=== PATIENT | female | born 1960 | race Caucasian/White ===

== ENCOUNTER 2021-10-15 15:25 | Outpatient (CLI) | payer BC ==
[2021-10-15 16:17] LABS: #Basophils 0.1 10x3/uL (0.0-0.2); #Eosinphils 0.2 10x3/uL (0.0-0.5); #Monocytes 1.1 10x3/uL (0.0-1.1); #Neutrophils 7.5 10x3/uL (1.5-8.4); %Basophils 1.1 % (0.0-2.0); %Eosinophils 1.4 % (0.0-6.0); %Lymphocytes 21.5 % (18.0-47.0); %Monocytes 9.5 % (0.0-10.0); %Neutrophils 66.1 % (40.0-75.0); Hemoglobin 14.3 g/dL (12.0-15.5); Mean Corpuscular HGB CONC 33.5 g/dL (32.0-36.0); Mean Corpuscular Hemoglobin 31.3 pg (27.0-33.0); Mean Corpuscular Volume 93.4 fl (81.6-98.3); Platelet Count 197 10x3/uL (150-450); Red Blood Cell (RBC) Count 4.57 10x6/uL (3.90-5.03); White Blood Cell (WBC) Count 11.4 10x3/uL (3.5-10.5)
[2021-10-15 16:38] LABS: Anion Gap 14 mmol/L (10-20); BUN (Urea Nitrogen) 25 mg/dL (9.8-20.1); Calc. Creatinine Clearance 0 mL/min (70-130); Calcium 10.1 mg/dL (7.8-10.44); Carbon Dioxide 27 mmol/L (23-31); Chloride 105 mmol/L (98-107); Glucose 99 mg/dL (80-115); Sodium 142 mmol/L (136-145)
[2021-10-15 16:45] LABS: Prothrombin Time 10.7 sec (9.5-12.1)
== END 2021-10-15 15:26 | disposition home or self-care (01) ==
LOC: LABBT 15:25
PROVIDERS: ATTEND Orthopaedic Surgery
DX: Z01.818 Encounter for other preprocedural examination (principal); M17.12 Unilateral primary osteoarthritis, left knee; Z20.822 Contact with and (suspected) exposure to COVID-19
CPT/HCPCS: 80048; 85025; 85610; 87081; 93005; 93010; U0003; U0005

== ENCOUNTER 2021-10-20 06:17 | Observation (INO) | payer BC, OTHER ==
[2021-10-20] MEDS ORDERED: Tranexamic Acid 1,000 MG/10 ML VIAL ONE (07:09)
[2021-10-20] MEDS ORDERED: Sodium Chloride 0.9% 100 ML ONE ×2 (07:10→09:10)
[2021-10-20] MEDS ORDERED: Vancomycin HCl 1.5 GM in Sodium Chloride 0.9% 250 ML 300 ML IVPB SCH (07:30)
[2021-10-20] MEDS ORDERED: Fentanyl 100 MCG/2 ML VIAL ONE ×3 (08:11→13:03)
[2021-10-20] MEDS ORDERED: Midazolam HCl 2 mg/2 ml Vial ONE (08:11)
[2021-10-20] MEDS ORDERED: Fentanyl 100 MCG/2 ML VIAL SLOW IVP PRN ×2 (08:52→16:03)
[2021-10-20] MEDS ORDERED: Promethazine HCl 25 MG/ML VIAL IM PRN ×3 (08:53→16:00)
[2021-10-20] MEDS ORDERED: Acetaminophen 325 MG TAB PO PRN (08:53)
[2021-10-20] MEDS ORDERED: HYDROcodone/Acetaminophen 10/325 mg Tablet PO PRN ×3 (08:53→16:00)
[2021-10-20] MEDS ORDERED: Ondansetron PF 4 MG/2 ML Vial IVP PRN ×3 (08:53→16:00)
[2021-10-20] MEDS ORDERED: Zolpidem Tartrate 5 MG TAB PO PRN ×3 (08:53→16:00)
[2021-10-20] MEDS ORDERED: diphenhydrAMINE 25 MG CAP PO PRN (08:53)
[2021-10-20] MEDS ORDERED: Acyclovir 800 mg Tablet PO PRN (08:54)
[2021-10-20] MEDS ORDERED: Ropivacaine HCl/PF 250 ML in Premix Bag 1 BAG NERVE BLCK SCH ×2 (09:00→16:00)
[2021-10-20] MEDS ORDERED: ceFAZolin 2 GM/Dextrose 50 ML 2 GM in Premix Bag 1 BAG IVPB SCH (09:00)
[2021-10-20] MEDS ORDERED: traMADol HCl 50 MG TAB PO PRN ×4 (09:00→16:00)
[2021-10-20] MEDS ORDERED: Bupivacaine PF 0.5% 30 ML VIAL ONE ×2 (09:04→11:47)
[2021-10-20] MEDS ORDERED: CEFAZOLIN 2 GM VIAL ONE (09:10)
[2021-10-20] MEDS ORDERED: Bupivacaine HCl 0.5%/Epinephrine 1:200,000/PF 30 ml Vial ONE (09:15)
[2021-10-20] MEDS ORDERED: Ketorolac Tromethamine 30 MG/ML VIAL ONE (09:15)
[2021-10-20] MEDS ORDERED: Ondansetron PF 4 MG/2 ML Vial ONE (09:15)
[2021-10-20] MEDS ORDERED: PROPOFOL 200 MG/20 ML VIAL ONE (09:15)
[2021-10-20] MEDS ORDERED: Dexamethasone 20 MG/5 ML VIAL ONE (09:15)
[2021-10-20] MEDS ORDERED: fentaNYL Citrate/PF 100 MCG/2 ML SYRINGE ONE (09:35)
[2021-10-20] MEDS ORDERED: Ketorolac Tromethamine 30 MG/ML VIAL IM SCH (14:00)
[2021-10-20 15:30] VITALS: BMI 45.3
[2021-10-20] MEDS: HYDROcodone/Acetaminophen 10/325 mg Tablet PO PRN ×2 (15:48→20:48)
[2021-10-20] MEDS: rOPINIRole HCl 1 MG TAB PO SCH ×2 (15:49→21:52)
[2021-10-20] MEDS: Sodium Chloride 0.9% 1,000 ML IV SCH ×2 (15:49→18:35)
[2021-10-20] MEDS: Senokot S 8.6-50 MG TAB PO SCH ×2 (15:49→20:44)
[2021-10-20] MEDS: Ferrous Gluconate 324 MG TAB PO SCH ×2 (15:50→20:44)
[2021-10-20] MEDS: Multivitamin W/ Minerals 1 TAB PO SCH (15:50)
[2021-10-20] MEDS: Ketorolac Tromethamine 30 MG/ML VIAL IVP SCH ×3 (15:50→18:05)
[2021-10-20] MEDS: Aspirin 81 mg Enteric Coated Tablet PO SCH ×2 (15:51→20:44)
[2021-10-20] MEDS ORDERED: Sodium Chloride 0.9% 500 ML IV SCH (17:00)
[2021-10-20] MEDS: CEFAZOLIN 2 GM in Sodium Chloride 0.9% 100 ML IVPB SCH (18:04)
[2021-10-20] MEDS: Magnesium Oxide 250 MG TAB PO SCH (20:44)
[2021-10-20] MEDS: Amlodipine 5 MG TAB PO SCH (20:44)
[2021-10-20] MEDS: Zinc Sulfate 220 MG CAP PO SCH (20:44)
[2021-10-20] MEDS: Escitalopram Oxalate 10 mg Tablet PO SCH (20:47)
[2021-10-20] MEDS: Atorvastatin Calcium 10 MG TAB PO SCH (20:47)
[2021-10-20] MEDS: ALPRAZolam 0.5 MG TAB PO SCH (20:47)
[2021-10-20] MEDS: Cholecalciferol 1,000 UNITS (25 MCG) TAB PO SCH (20:48)
[2021-10-20] MEDS: Docusate 100 MG CAP PO SCH (20:51)
[2021-10-20] MEDS ORDERED: Non-Formulary Item 1 EACH (Zolpidem Tartrate [Zolpidem Tartrate] 10 MG Tablet) PO SCH (21:00)
[2021-10-20] MEDS ORDERED: Non-Formulary Item 1 EACH (Losartan Potassium [Cozaar] 100 MG Tablet) PO SCH (21:00)
[2021-10-20] MEDS ORDERED: Non-Formulary Item 1 EACH (Amlodipine Besylate [Amlodipine Besylate] 2.5 MG Tablet) PO SCH (21:00)
[2021-10-20] MEDS ORDERED: Non-Formulary Item 1 EACH (Cholecalciferol (Vitamin D3) [Vitamin D3] 2,000 UNIT Capsule) PO SCH (21:00)
[2021-10-20] MEDS ORDERED: Non-Formulary Item 1 EACH (Zinc [Zinc] 50 MG Tablet) PO SCH (21:00)
[2021-10-20] MEDS ORDERED: Non-Formulary Item 1 EACH (Lovastatin [Lovastatin] 40 MG Tablet) PO SCH (21:00)
[2021-10-20] MEDS ORDERED: ALPRAZolam 0.25 MG TAB PO SCH (21:00)
[2021-10-20] MEDS ORDERED: Non-Formulary Item 1 EACH (Magnesium [Magnesium] 250 MG Tablet) PO SCH (21:00)
[2021-10-20] MEDS ORDERED: Zolpidem Tartrate 5 MG TAB PO SCH (21:00)
[2021-10-21] MEDS: Ketorolac Tromethamine 30 MG/ML VIAL IVP SCH ×6 (00:55→18:16)
[2021-10-21] MEDS: CEFAZOLIN 2 GM in Sodium Chloride 0.9% 100 ML IVPB SCH (01:01)
[2021-10-21] MEDS: HYDROcodone/Acetaminophen 10/325 mg Tablet PO PRN ×6 (01:06→21:16)
[2021-10-21] MEDS: Sodium Chloride 0.9% 1,000 ML IV SCH ×2 (04:10→16:43)
[2021-10-21 07:51] LABS: Hemoglobin 13.5 g/dL (12.0-16.0); Mean Corpuscular HGB CONC 32.3 g/dL (32.0-36.0); Mean Corpuscular Hemoglobin 31.8 pg (27.0-31.0); Mean Corpuscular Volume 98.4 fL (78.0-98.0); Platelet Count 159 thou/uL (130-400); RBC Distribution Width 12.6 % (11.5-14.5); Red Blood Cell (RBC) Count 4.24 mill/uL (4.20-5.40); White Blood Cell (WBC) Count 12.5 thou/uL (4.8-10.8)
[2021-10-21] MEDS: rOPINIRole HCl 1 MG TAB PO SCH ×2 (08:36→21:15)
[2021-10-21] MEDS: Losartan 25 MG TAB PO SCH (08:36)
[2021-10-21] MEDS: Aspirin 81 mg Enteric Coated Tablet PO SCH ×2 (08:37→21:18)
[2021-10-21] MEDS: Ferrous Gluconate 324 MG TAB PO SCH ×2 (08:37→21:15)
[2021-10-21] MEDS: Multivitamin W/ Minerals 1 TAB PO SCH (08:37)
[2021-10-21] MEDS: Senokot S 8.6-50 MG TAB PO SCH ×2 (08:39→21:15)
[2021-10-21] MEDS: Docusate 100 MG CAP PO SCH (21:15)
[2021-10-21] MEDS: Amlodipine 5 MG TAB PO SCH (21:17)
[2021-10-21] MEDS: Zinc Sulfate 220 MG CAP PO SCH (21:17)
[2021-10-21] MEDS: Atorvastatin Calcium 10 MG TAB PO SCH (21:17)
[2021-10-21] MEDS: Cholecalciferol 1,000 UNITS (25 MCG) TAB PO SCH (21:17)
[2021-10-21] MEDS: Escitalopram Oxalate 10 mg Tablet PO SCH (21:17)
[2021-10-21] MEDS: ALPRAZolam 0.5 MG TAB PO SCH (21:17)
[2021-10-21] MEDS: Magnesium Oxide 250 MG TAB PO SCH (21:18)
[2021-10-22] MEDS: Ketorolac Tromethamine 30 MG/ML VIAL IVP SCH ×3 (00:20→11:16)
[2021-10-22] MEDS: HYDROcodone/Acetaminophen 10/325 mg Tablet PO PRN ×3 (01:31→09:17)
[2021-10-22] MEDS: Sodium Chloride 0.9% 1,000 ML IV SCH ×2 (01:33→11:16)
[2021-10-22 06:14] LABS: Hemoglobin 13.1 g/dL (12.0-16.0); Mean Corpuscular HGB CONC 32.7 g/dL (32.0-36.0); Mean Corpuscular Hemoglobin 32.3 pg (27.0-31.0); Mean Corpuscular Volume 98.7 fL (78.0-98.0); Mean Platelet Volume 8.3 fL (7.4-10.4); Platelet Count 157 thou/uL (130-400); RBC Distribution Width 12.7 % (11.5-14.5); Red Blood Cell (RBC) Count 4.05 mill/uL (4.20-5.40); White Blood Cell (WBC) Count 11.6 thou/uL (4.8-10.8)
[2021-10-22 08:25] VITALS: BP 163/77; TEMP 98
[2021-10-22] MEDS: Aspirin 81 mg Enteric Coated Tablet PO SCH (09:18)
[2021-10-22] MEDS: Senokot S 8.6-50 MG TAB PO SCH (09:18)
[2021-10-22] MEDS: Ferrous Gluconate 324 MG TAB PO SCH (09:18)
[2021-10-22] MEDS: Multivitamin W/ Minerals 1 TAB PO SCH (09:18)
[2021-10-22] MEDS: rOPINIRole HCl 1 MG TAB PO SCH (09:18)
[2021-10-22] MEDS: Losartan 25 MG TAB PO SCH (09:18)
[2021-10-22] MEDS ORDERED: Cephalexin 250 MG CAP PO SCH (21:00)
== END 2021-10-22 12:45 | disposition home or self-care (01) ==
LOC: SDC 06:17 → SURG B 15:17
PROVIDERS: ADMIT Orthopaedic Surgery; ATTEND Orthopaedic Surgery
PROC: 0SRD0J9 Replacement of Left Knee Joint with Synthetic Substitute, Cemented, Open Approach (ICD-10-PCS; principal; 2021-10-22)
PROC: 8E0YXBZ Computer Assisted Procedure of Lower Extremity (ICD-10-PCS; 2021-10-22)
PROC: 3E0T3BZ Introduction of Anesthetic Agent into Peripheral Nerves and Plexi, Percutaneous Approach (ICD-10-PCS; 2021-10-22)
DX: M17.12 Unilateral primary osteoarthritis, left knee (principal); I10 Essential (primary) hypertension; E78.5 Hyperlipidemia, unspecified; G47.30 Sleep apnea, unspecified; G25.81 Restless legs syndrome; E78.00 Pure hypercholesterolemia, unspecified; G89.29 Other chronic pain; M54.9 Dorsalgia, unspecified; E66.01 Morbid (severe) obesity due to excess calories; Z68.42 Body mass index [BMI] 45.0-49.9, adult; Z79.899 Other long term (current) drug therapy; Z88.5 Allergy status to narcotic agent
CPT/HCPCS: 36415; 85027; 96365; 96375; 96376; C1713; C1776; G0378; J0690; J1100; J1885; J2250; J2405; J2704; J2795; J3010; J3370; J3490; J7050; S0020

== ENCOUNTER 2022-11-16 21:19 | Inpatient (IN) | payer BC, OTHER ==
[2022-11-16 22:10] LABS: #Basophils 0.1 thou/uL (0.0-0.2); #Eosinphils 0.2 thou/uL (0.0-0.7); #Monocytes 1.1 thou/uL (0.11-0.59); #Neutrophils 10.2 thou/uL (1.40-6.50); %Basophils 0.8 % (0.0-1.0); %Eosinophils 1.1 % (0.0-10.0); %Monocytes 8.3 % (0.0-10.0); Hemoglobin 14.1 g/dL (12.0-16.0); Mean Corpuscular HGB CONC 33.8 g/dL (32.0-36.0); Mean Corpuscular Hemoglobin 30.8 pg (27.0-31.0); Mean Platelet Volume 10.4 fL (7.4-10.4); Platelet Count 151 10x3/uL (130-400); RBC Distribution Width 13.5 % (11.5-14.5); Red Blood Cell (RBC) Count 4.58 mill/uL (4.20-5.40); White Blood Cell (WBC) Count 13.3 10x3/uL (4.8-10.8)
[2022-11-16 22:35] LABS: ALT (SGPT) 90 U/L (8-55); AST (SGOT) 59 U/L (5-34); Albumin 3.7 g/dL (3.4-4.8); Alkaline Phosphatase 114 U/L (40-110); Anion Gap 17 mmol/L (10-20); BUN (Urea Nitrogen) 11 mg/dL (9.8-20.1); Bilirubin, Total 0.4 mg/dL (0.2-1.2); Calc. Creatinine Clearance 0 mL/min (70-130); Calcium 9.5 mg/dL (7.8-10.44); Carbon Dioxide 19 mmol/L (23-31); Chloride 106 mmol/L (98-107); Estimated GFR 98; Globulin 3.1 g/dL (2.4-3.5); Glucose 114 mg/dL (80-115); Potassium 3.4 mmol/L (3.5-5.1); Protein, Total 6.8 g/dL (5.8-8.1); Sodium 139 mmol/L (136-145)
[2022-11-16] MEDS ORDERED: Amlodipine 10 MG TAB PO SCH (22:45)
[2022-11-16 22:55] LABS: CKMB 1.6 ng/mL (0-6.6)
[2022-11-16] MEDS ORDERED: Potassium Chloride 20 MEQ TAB PO SCH (23:00)
[2022-11-16] MEDS ORDERED: Labetalol HCl 100 MG/20 ML VIAL ONE (23:10)
[2022-11-16] MEDS ORDERED: Furosemide 20 MG/2 ML VIAL ONE (23:10)
[2022-11-17 00:15] LABS: Magnesium 1.9 mg/dL (1.6-2.6)
[2022-11-17] MEDS ORDERED: rOPINIRole HCl 1 MG TAB PO SCH (01:00)
[2022-11-17 01:19] VITALS: BMI 45.6
[2022-11-17 01:39] LABS: Troponin I 0.171 ng/mL (< 0.028)
[2022-11-17] MEDS ORDERED: Ketorolac Tromethamine 30 MG/ML VIAL IVP SCH (03:15)
[2022-11-17 04:00] LABS: #Basophils 0.1 thou/uL (0.0-0.2); #Eosinphils 0.1 thou/uL (0.0-0.7); #Monocytes 1.2 thou/uL (0.11-0.59); #Neutrophils 9.4 thou/uL (1.40-6.50); %Basophils 0.8 % (0.0-1.0); %Eosinophils 0.9 % (0.0-10.0); %Lymphocytes 9.9 % (21.0-51.0); %Monocytes 9.7 % (0.0-10.0); Hemoglobin 13.7 g/dL (12.0-16.0); Mean Corpuscular HGB CONC 32.8 g/dL (32.0-36.0); Mean Corpuscular Hemoglobin 30.1 pg (27.0-31.0); Mean Corpuscular Volume 91.9 fl (78.0-98.0); Mean Platelet Volume 10.7 fL (7.4-10.4); Platelet Count 150 10x3/uL (130-400); RBC Distribution Width 13.6 % (11.5-14.5); Red Blood Cell (RBC) Count 4.55 mill/uL (4.20-5.40)
[2022-11-17 04:23] LABS: ALT (SGPT) 91 U/L (8-55); AST (SGOT) 56 U/L (5-34); Albumin 3.7 g/dL (3.4-4.8); Alkaline Phosphatase 109 U/L (40-110); Anion Gap 18 mmol/L (10-20); BUN (Urea Nitrogen) 10 mg/dL (9.8-20.1); Bilirubin, Total 0.4 mg/dL (0.2-1.2); Calc. Creatinine Clearance 161 mL/min (70-130); Calcium 9.5 mg/dL (7.8-10.44); Carbon Dioxide 22 mmol/L (23-31); Chloride 104 mmol/L (98-107); Estimated GFR 98; Globulin 2.9 g/dL (2.4-3.5); Glucose 111 mg/dL (80-115); Magnesium 1.8 mg/dL (1.6-2.6); Phosphorus 5.1 mg/dL (2.3-4.7); Potassium 3.5 mmol/L (3.5-5.1); Protein, Total 6.6 g/dL (5.8-8.1); Sodium 140 mmol/L (136-145)
[2022-11-17 04:27] LABS: Troponin I 0.148 ng/mL (< 0.028)
[2022-11-17] MEDS ORDERED: HYDROcodone/Acetaminophen 7.5/325 mg Tablet PO SCH (05:00)
[2022-11-17 05:38] LABS: Legionella Urinary Ag Negative (Negative); Strep pneumo Urine Ag NEGATIVE (NEGATIVE)
[2022-11-17] MEDS: Furosemide 20 MG/2 ML VIAL SLOW IVP SCH ×2 (06:12→15:01)
[2022-11-17] MEDS: Losartan 25 MG TAB PO SCH (09:44)
[2022-11-17] MEDS: Ondansetron PF 4 MG/2 ML Vial IVP PRN ×2 (09:45→21:04)
[2022-11-17] MEDS ORDERED: Morphine 2 MG/ML VIAL SLOW IVP PRN (14:07)
[2022-11-17] MEDS: Docusate 100 MG CAP PO SCH (15:01)
[2022-11-17] MEDS: rOPINIRole HCl 1 MG TAB PO SCH ×2 (15:06→20:10)
[2022-11-17] MEDS ORDERED: Lidocaine 1% (PF) 30 ML VIAL ONE (16:13)
[2022-11-17 18:24] LABS: RBC Count-Automated (BF) 398726 /cu.mm; WBC/Nucleated-Auto (BF) 2131 /cu.mm
[2022-11-17 18:26] LABS: BF Color Red; Body Fluid Source Pleural Fluid; Clarity Cloudy/Turbid (Clear); Tube # EDTA
[2022-11-17 18:43] LABS: Pleural Fluid, Amylase Less than 30 U/L (Not Available); Pleural Fluid, Glucose Less than 20 mg/dL; Pleural Fluid, LDH 1339 U/L (Not Available)
[2022-11-17 18:50] LABS: BF Segmented Neutrophils 30 %; Cell Count Non Hematic 35 %; Lymphocytes 35 %
[2022-11-17] MEDS: HYDROcodone/Acetaminophen 10/325 mg Tablet PO PRN (20:10)
[2022-11-17] MEDS: Atorvastatin Calcium 10 MG TAB PO SCH (20:10)
[2022-11-17] MEDS: Zolpidem Tartrate 5 MG TAB PO SCH (20:10)
[2022-11-17] MEDS: ALPRAZolam 0.5 MG TAB PO SCH (20:10)
[2022-11-17] MEDS: Escitalopram Oxalate 10 mg Tablet PO SCH (20:10)
[2022-11-17] MEDS: Ascorbic Acid 500 mg Chewable Tablet PO SCH (20:10)
[2022-11-17] MEDS: Amlodipine 10 MG TAB PO SCH (20:11)
[2022-11-17] MEDS: Magnesium Oxide 250 MG TAB PO SCH (20:52)
[2022-11-17] MEDS: LevoFLOXacin 750 mg/D5W 750 MG in Premix Bag 1 BAG IVPB SCH (20:52)
[2022-11-18 04:05] LABS: #Basophils 0.1 thou/uL (0.0-0.2); #Eosinphils 0.3 thou/uL (0.0-0.7); #Monocytes 1.4 thou/uL (0.11-0.59); #Neutrophils 9.3 thou/uL (1.40-6.50); %Basophils 0.8 % (0.0-1.0); %Lymphocytes 13.2 % (21.0-51.0); %Monocytes 10.7 % (0.0-10.0); %Neutrophils 72.3 % (42.0-75.0); Hemoglobin 14.3 g/dL (12.0-16.0); Mean Corpuscular HGB CONC 32.9 g/dL (32.0-36.0); Mean Corpuscular Hemoglobin 30.8 pg (27.0-31.0); Mean Corpuscular Volume 93.5 fl (78.0-98.0); Mean Platelet Volume 10.8 fL (7.4-10.4); Platelet Count 149 10x3/uL (130-400); RBC Distribution Width 13.6 % (11.5-14.5); Red Blood Cell (RBC) Count 4.65 mill/uL (4.20-5.40); White Blood Cell (WBC) Count 12.9 10x3/uL (4.8-10.8)
[2022-11-18 04:29] LABS: ALT (SGPT) 100 U/L (8-55); AST (SGOT) 63 U/L (5-34); Albumin 3.7 g/dL (3.4-4.8); Alkaline Phosphatase 118 U/L (40-110); Anion Gap 16 mmol/L (10-20); BUN (Urea Nitrogen) 13 mg/dL (9.8-20.1); Bilirubin, Total 0.4 mg/dL (0.2-1.2); Calc. Creatinine Clearance 148 mL/min (70-130); Calcium 9.4 mg/dL (7.8-10.44); Carbon Dioxide 27 mmol/L (23-31); Chloride 102 mmol/L (98-107); Estimated GFR 92; Glucose 102 mg/dL (80-115); Magnesium 1.9 mg/dL (1.6-2.6); Potassium 3.3 mmol/L (3.5-5.1); Protein, Total 6.7 g/dL (5.8-8.1); Sodium 142 mmol/L (136-145)
[2022-11-18] MEDS: Furosemide 20 MG/2 ML VIAL SLOW IVP SCH ×2 (05:33→13:15)
[2022-11-18] MEDS: HYDROcodone/Acetaminophen 10/325 mg Tablet PO PRN ×3 (05:35→19:44)
[2022-11-18] MEDS: Aspirin 81 mg Enteric Coated Tablet PO SCH (08:14)
[2022-11-18] MEDS: Losartan 25 MG TAB PO SCH (08:14)
[2022-11-18] MEDS: rOPINIRole HCl 1 MG TAB PO SCH ×2 (08:14→20:10)
[2022-11-18] MEDS: Docusate 100 MG CAP PO SCH (08:14)
[2022-11-18] MEDS: metroNIDAZOLE 500 MG in Premix Bag 1 BAG IVPB SCH ×2 (15:25→21:32)
[2022-11-18] MEDS ORDERED: Polyethylene Glycol 3350 17 GM Packet PO SCH (19:00)
[2022-11-18] MEDS: Ondansetron PF 4 MG/2 ML Vial IVP PRN (19:46)
[2022-11-18] MEDS: LevoFLOXacin 750 mg/D5W 750 MG in Premix Bag 1 BAG IVPB SCH (20:01)
[2022-11-18] MEDS: Escitalopram Oxalate 10 mg Tablet PO SCH (20:12)
[2022-11-18] MEDS: ALPRAZolam 0.5 MG TAB PO SCH (20:12)
[2022-11-18] MEDS: Senokot S 8.6-50 MG TAB PO SCH (20:12)
[2022-11-18] MEDS: Amlodipine 10 MG TAB PO SCH (20:12)
[2022-11-18] MEDS: Ascorbic Acid 500 mg Chewable Tablet PO SCH (20:13)
[2022-11-18] MEDS: Magnesium Oxide 250 MG TAB PO SCH (20:13)
[2022-11-18] MEDS: Atorvastatin Calcium 10 MG TAB PO SCH (20:13)
[2022-11-18] MEDS: Zolpidem Tartrate 5 MG TAB PO SCH (21:30)
[2022-11-19 04:01] LABS: #Basophils 0.1 thou/uL (0.0-0.2); #Eosinphils 0.3 thou/uL (0.0-0.7); #Monocytes 1.4 thou/uL (0.11-0.59); #Neutrophils 8.6 thou/uL (1.40-6.50); %Basophils 0.8 % (0.0-1.0); %Eosinophils 2.2 % (0.0-10.0); %Lymphocytes 14.6 % (21.0-51.0); %Monocytes 11.4 % (0.0-10.0); %Neutrophils 69.7 % (42.0-75.0); Hemoglobin 14.3 g/dL (12.0-16.0); Mean Corpuscular HGB CONC 32.6 g/dL (32.0-36.0); Mean Corpuscular Hemoglobin 30.2 pg (27.0-31.0); Mean Corpuscular Volume 92.6 fl (78.0-98.0); Mean Platelet Volume 10.8 fL (7.4-10.4); Platelet Count 151 10x3/uL (130-400); RBC Distribution Width 13.5 % (11.5-14.5); Red Blood Cell (RBC) Count 4.73 mill/uL (4.20-5.40); White Blood Cell (WBC) Count 12.3 10x3/uL (4.8-10.8)
[2022-11-19 04:34] LABS: ALT (SGPT) 90 U/L (8-55); AST (SGOT) 54 U/L (5-34); Albumin 3.7 g/dL (3.4-4.8); Alkaline Phosphatase 123 U/L (40-110); Anion Gap 19 mmol/L (10-20); BUN (Urea Nitrogen) 15 mg/dL (9.8-20.1); Bilirubin, Total 0.5 mg/dL (0.2-1.2); Calc. Creatinine Clearance 144 mL/min (70-130); Calcium 9.6 mg/dL (7.8-10.44); Carbon Dioxide 25 mmol/L (23-31); Chloride 99 mmol/L (98-107); Estimated GFR 89; Glucose 105 mg/dL (80-115); Magnesium 1.8 mg/dL (1.6-2.6); Potassium 3.1 mmol/L (3.5-5.1); Protein, Total 6.7 g/dL (5.8-8.1); Sodium 140 mmol/L (136-145)
[2022-11-19] MEDS: Furosemide 20 MG/2 ML VIAL SLOW IVP SCH ×2 (05:56→14:35)
[2022-11-19] MEDS: metroNIDAZOLE 500 MG in Premix Bag 1 BAG IVPB SCH ×3 (05:56→21:58)
[2022-11-19] MEDS: Senokot S 8.6-50 MG TAB PO SCH ×2 (08:17→20:21)
[2022-11-19] MEDS: Losartan 25 MG TAB PO SCH (08:17)
[2022-11-19] MEDS: Aspirin 81 mg Enteric Coated Tablet PO SCH (08:18)
[2022-11-19] MEDS: rOPINIRole HCl 1 MG TAB PO SCH ×2 (08:18→20:21)
[2022-11-19] MEDS: HYDROcodone/Acetaminophen 10/325 mg Tablet PO PRN ×3 (08:19→20:01)
[2022-11-19] MEDS: Polyethylene Glycol 3350 17 GM Packet PO SCH (08:21)
[2022-11-19] MEDS: ALPRAZolam 0.5 MG TAB PO SCH (20:01)
[2022-11-19] MEDS: LevoFLOXacin 750 mg/D5W 750 MG in Premix Bag 1 BAG IVPB SCH (20:16)
[2022-11-19] MEDS: Atorvastatin Calcium 10 MG TAB PO SCH (20:19)
[2022-11-19] MEDS: Amlodipine 10 MG TAB PO SCH (20:20)
[2022-11-19] MEDS: Ascorbic Acid 500 mg Chewable Tablet PO SCH (20:20)
[2022-11-19] MEDS: Magnesium Oxide 250 MG TAB PO SCH (20:21)
[2022-11-19] MEDS: Escitalopram Oxalate 10 mg Tablet PO SCH (20:21)
[2022-11-19] MEDS: Zolpidem Tartrate 5 MG TAB PO SCH (21:50)
[2022-11-20] MEDS: HYDROcodone/Acetaminophen 10/325 mg Tablet PO PRN ×3 (06:06→20:37)
[2022-11-20] MEDS: Furosemide 20 MG/2 ML VIAL SLOW IVP SCH ×2 (06:08→15:07)
[2022-11-20] MEDS: metroNIDAZOLE 500 MG in Premix Bag 1 BAG IVPB SCH ×3 (06:08→22:42)
[2022-11-20] MEDS: Ondansetron PF 4 MG/2 ML Vial IVP PRN (09:00)
[2022-11-20] MEDS: Polyethylene Glycol 3350 17 GM Packet PO SCH (09:00)
[2022-11-20] MEDS: Losartan 25 MG TAB PO SCH (09:04)
[2022-11-20] MEDS: rOPINIRole HCl 1 MG TAB PO SCH ×2 (09:04→20:37)
[2022-11-20] MEDS: Senokot S 8.6-50 MG TAB PO SCH ×2 (09:04→20:46)
[2022-11-20] MEDS: Aspirin 81 mg Enteric Coated Tablet PO SCH (09:04)
[2022-11-20] MEDS ORDERED: Iopamidol-370 76% 500 ML MDV (1 ML CHARGE) ONE (11:16)
[2022-11-20] MEDS: LevoFLOXacin 750 mg/D5W 750 MG in Premix Bag 1 BAG IVPB SCH (20:35)
[2022-11-20] MEDS: Escitalopram Oxalate 10 mg Tablet PO SCH (20:36)
[2022-11-20] MEDS: Atorvastatin Calcium 10 MG TAB PO SCH (20:36)
[2022-11-20] MEDS: ALPRAZolam 0.5 MG TAB PO SCH (20:36)
[2022-11-20] MEDS: Amlodipine 10 MG TAB PO SCH (20:36)
[2022-11-20] MEDS: Magnesium Oxide 250 MG TAB PO SCH (20:37)
[2022-11-20] MEDS: Zolpidem Tartrate 5 MG TAB PO SCH (20:37)
[2022-11-20] MEDS: Ascorbic Acid 500 mg Chewable Tablet PO SCH (20:46)
[2022-11-21] MEDS: Furosemide 20 MG/2 ML VIAL SLOW IVP SCH (06:20)
[2022-11-21] MEDS: metroNIDAZOLE 500 MG in Premix Bag 1 BAG IVPB SCH (06:20)
[2022-11-21] MEDS: HYDROcodone/Acetaminophen 10/325 mg Tablet PO PRN ×3 (06:31→20:58)
[2022-11-21] MEDS: Losartan 25 MG TAB PO SCH (08:12)
[2022-11-21] MEDS: rOPINIRole HCl 1 MG TAB PO SCH ×2 (08:12→20:59)
[2022-11-21] MEDS: Aspirin 81 mg Enteric Coated Tablet PO SCH (08:12)
[2022-11-21] MEDS: Polyethylene Glycol 3350 17 GM Packet PO SCH (08:13)
[2022-11-21] MEDS: Senokot S 8.6-50 MG TAB PO SCH ×2 (08:13→21:00)
[2022-11-21] MEDS: Ondansetron PF 4 MG/2 ML Vial IVP PRN (10:47)
[2022-11-21] MEDS: Magnesium Oxide 250 MG TAB PO SCH (20:59)
[2022-11-21] MEDS: Zolpidem Tartrate 5 MG TAB PO SCH (20:59)
[2022-11-21] MEDS: Amlodipine 10 MG TAB PO SCH (20:59)
[2022-11-21] MEDS: ALPRAZolam 0.5 MG TAB PO SCH (20:59)
[2022-11-21] MEDS: Atorvastatin Calcium 10 MG TAB PO SCH (20:59)
[2022-11-21] MEDS: Ascorbic Acid 500 mg Chewable Tablet PO SCH (21:00)
[2022-11-21] MEDS: Escitalopram Oxalate 10 mg Tablet PO SCH (21:00)
[2022-11-22] MEDS: LevoFLOXacin 500 MG TAB PO SCH (06:32)
[2022-11-22] MEDS: HYDROcodone/Acetaminophen 10/325 mg Tablet PO PRN ×3 (06:38→22:25)
[2022-11-22] MEDS: Losartan 25 MG TAB PO SCH (09:19)
[2022-11-22] MEDS: rOPINIRole HCl 1 MG TAB PO SCH ×2 (09:19→22:25)
[2022-11-22] MEDS: Polyethylene Glycol 3350 17 GM Packet PO SCH (09:20)
[2022-11-22] MEDS: Aspirin 81 mg Enteric Coated Tablet PO SCH (09:20)
[2022-11-22] MEDS: Senokot S 8.6-50 MG TAB PO SCH ×2 (09:20→20:45)
[2022-11-22] MEDS: Ondansetron PF 4 MG/2 ML Vial IVP PRN (12:12)
[2022-11-22] MEDS: Amlodipine 10 MG TAB PO SCH (20:44)
[2022-11-22] MEDS: Magnesium Oxide 250 MG TAB PO SCH (20:44)
[2022-11-22] MEDS: Ascorbic Acid 500 mg Chewable Tablet PO SCH (20:45)
[2022-11-22] MEDS: Zolpidem Tartrate 5 MG TAB PO SCH (20:45)
[2022-11-22] MEDS: Escitalopram Oxalate 10 mg Tablet PO SCH (20:45)
[2022-11-22] MEDS: Atorvastatin Calcium 10 MG TAB PO SCH (20:45)
[2022-11-22] MEDS: ALPRAZolam 0.5 MG TAB PO SCH (20:45)
[2022-11-23] MEDS: LevoFLOXacin 500 MG TAB PO SCH (05:34)
[2022-11-23] MEDS: Ondansetron PF 4 MG/2 ML Vial IVP PRN (05:49)
[2022-11-23] MEDS: HYDROcodone/Acetaminophen 10/325 mg Tablet PO PRN ×3 (08:38→17:14)
[2022-11-23] MEDS: Aspirin 81 mg Enteric Coated Tablet PO SCH (08:39)
[2022-11-23] MEDS: Losartan 25 MG TAB PO SCH (08:39)
[2022-11-23] MEDS: Senokot S 8.6-50 MG TAB PO SCH ×2 (08:41→21:12)
[2022-11-23] MEDS: Polyethylene Glycol 3350 17 GM Packet PO SCH (08:41)
[2022-11-23] MEDS: rOPINIRole HCl 1 MG TAB PO SCH ×2 (12:51→21:11)
[2022-11-23] MEDS ORDERED: Electrolyte Replacement Protocol 1 EACH FS PRN (18:30)
[2022-11-23] MEDS: Ascorbic Acid 500 mg Chewable Tablet PO SCH (21:11)
[2022-11-23] MEDS: Zolpidem Tartrate 5 MG TAB PO SCH (21:12)
[2022-11-23] MEDS: ALPRAZolam 0.5 MG TAB PO SCH (21:13)
[2022-11-23] MEDS: Amlodipine 10 MG TAB PO SCH (21:13)
[2022-11-23] MEDS: Magnesium Oxide 250 MG TAB PO SCH (21:13)
[2022-11-23] MEDS: Atorvastatin Calcium 10 MG TAB PO SCH (21:13)
[2022-11-23] MEDS: Escitalopram Oxalate 10 mg Tablet PO SCH (21:13)
[2022-11-24] MEDS: LevoFLOXacin 500 MG TAB PO SCH (05:13)
[2022-11-24] MEDS: HYDROcodone/Acetaminophen 10/325 mg Tablet PO PRN ×4 (05:19→19:11)
[2022-11-24 06:27] LABS: Phosphorus 4.6 mg/dL (2.3-4.7)
[2022-11-24 06:29] LABS: ALT (SGPT) 59 U/L (8-55); AST (SGOT) 58 U/L (5-34); Albumin 3.3 g/dL (3.4-4.8); Alkaline Phosphatase 153 U/L (40-110); Anion Gap 16 mmol/L (10-20); BUN (Urea Nitrogen) 28 mg/dL (9.8-20.1); Bilirubin, Total 0.7 mg/dL (0.2-1.2); Calc. Creatinine Clearance 106 mL/min (70-130); Calcium 9.8 mg/dL (7.8-10.44); Carbon Dioxide 31 mmol/L (23-31); Chloride 93 mmol/L (98-107); Estimated GFR 64; Globulin 3.1 g/dL (2.4-3.5); Glucose 123 mg/dL (80-115); Magnesium 2.2 mg/dL (1.6-2.6); Potassium 3.2 mmol/L (3.5-5.1); Protein, Total 6.4 g/dL (5.8-8.1); Sodium 137 mmol/L (136-145)
[2022-11-24] MEDS ORDERED: Potassium Chloride 20 MEQ TAB PO SCH (08:00)
[2022-11-24] MEDS: Losartan 25 MG TAB PO SCH (08:08)
[2022-11-24] MEDS: Polyethylene Glycol 3350 17 GM Packet PO SCH (08:08)
[2022-11-24] MEDS: Aspirin 81 mg Enteric Coated Tablet PO SCH (08:09)
[2022-11-24] MEDS: Senokot S 8.6-50 MG TAB PO SCH ×2 (08:09→20:46)
[2022-11-24 09:15] LABS: Fungus Stain Final report (.)
[2022-11-24] MEDS: rOPINIRole HCl 1 MG TAB PO SCH ×2 (10:52→20:46)
[2022-11-24 12:53] LABS: Potassium 3.5 mmol/L (3.5-5.1)
[2022-11-24] MEDS ORDERED: Iopamidol-370 76% 500 ML MDV (1 ML CHARGE) ONE (15:14)
[2022-11-24] MEDS ORDERED: Furosemide 20 MG/2 ML VIAL SLOW IVP SCH (18:15)
[2022-11-24] MEDS: Magnesium Oxide 250 MG TAB PO SCH (20:45)
[2022-11-24] MEDS: Amlodipine 10 MG TAB PO SCH (20:45)
[2022-11-24] MEDS: Enoxaparin 120 MG/0.8 ML SYRINGE SC SCH (20:45)
[2022-11-24] MEDS: Escitalopram Oxalate 10 mg Tablet PO SCH (20:45)
[2022-11-24] MEDS: ALPRAZolam 0.5 MG TAB PO SCH (20:45)
[2022-11-24] MEDS: Zolpidem Tartrate 5 MG TAB PO SCH (20:45)
[2022-11-24] MEDS: Ascorbic Acid 500 mg Chewable Tablet PO SCH (20:46)
[2022-11-24] MEDS: Atorvastatin Calcium 10 MG TAB PO SCH (20:46)
[2022-11-24] MEDS ORDERED: Apixaban 5 MG TAB PO SCH (21:00)
[2022-11-25] MEDS: HYDROcodone/Acetaminophen 10/325 mg Tablet PO PRN ×4 (01:00→20:25)
[2022-11-25] MEDS: LevoFLOXacin 500 MG TAB PO SCH (05:05)
[2022-11-25 05:22] LABS: Actual Bicarbonate (HCO3v) 27.9 mEq/L (22-28); Base Excess 4.9 mEq/L (-2.0 to +3.0); Calcium, Ionized (venous) 1.11 mmol/L (1.16-1.32); Chloride (VBG) 96 mmol/L (98-106); Hematocrit-VBG 46 % (36.0-47.0); Hemoglobin (Hb) 15.7 g/dL (11.7-16.0); Potassium (VBG) 3.53 mmol/L (3.70-5.30); Sodium 133.2 mmol/L (133-146); pH (venous) 7.506 (7.32-7.43)
[2022-11-25] MEDS: Polyethylene Glycol 3350 17 GM Packet PO SCH (09:41)
[2022-11-25] MEDS: Losartan 25 MG TAB PO SCH (09:41)
[2022-11-25] MEDS: Senokot S 8.6-50 MG TAB PO SCH ×2 (09:42→20:27)
[2022-11-25] MEDS: Furosemide 20 MG/2 ML VIAL SLOW IVP SCH (09:42)
[2022-11-25] MEDS: Enoxaparin 120 MG/0.8 ML SYRINGE SC SCH (09:42)
[2022-11-25] MEDS: Aspirin 81 mg Enteric Coated Tablet PO SCH (09:42)
[2022-11-25] MEDS: rOPINIRole HCl 1 MG TAB PO SCH ×2 (11:00→20:39)
[2022-11-25] MEDS: Amlodipine 10 MG TAB PO SCH (20:25)
[2022-11-25] MEDS: Apixaban 5 MG TAB PO SCH (20:27)
[2022-11-25] MEDS: Acetaminophen 325 MG TAB PO PRN (20:27)
[2022-11-25] MEDS: Ascorbic Acid 500 mg Chewable Tablet PO SCH (20:28)
[2022-11-25] MEDS: Magnesium Oxide 250 MG TAB PO SCH (20:28)
[2022-11-25] MEDS: Escitalopram Oxalate 10 mg Tablet PO SCH (20:29)
[2022-11-25] MEDS: Atorvastatin Calcium 10 MG TAB PO SCH (20:29)
[2022-11-25] MEDS: ALPRAZolam 0.5 MG TAB PO SCH (20:29)
[2022-11-25 20:31] LABS: Chloride 93 mmol/L (98-107); Potassium 3.5 mmol/L (3.5-5.1); Sodium 133 mmol/L (136-145)
[2022-11-25 20:32] LABS: Glucose 104 mg/dL (80-115)
[2022-11-25 20:34] LABS: Anion Gap 18 mmol/L (10-20); Carbon Dioxide 26 mmol/L (23-31)
[2022-11-25 20:36] LABS: Calc. Creatinine Clearance 110 mL/min (70-130); Estimated GFR 67
[2022-11-25 20:37] LABS: BUN (Urea Nitrogen) 30 mg/dL (9.8-20.1)
[2022-11-25] MEDS: Zolpidem Tartrate 5 MG TAB PO SCH (22:10)
[2022-11-25 23:34] LABS: Actual Bicarbonate (HCO3a) 29.5 mEq/L (22-28); Base Excess (BEa) 5.2 mEq/L (-2.0 to +3.0); CO2 Tension 42.1 mmHg (35.0-45.0); Calcium, Ionized (arterial) 1.21 mmol/L (1.12-1.30); Carboxyhemoglobin (COHb) 0.9 gm% (0.0-3.0); Hematocrit-ABG 43 % (36.0-47.0); Hemoglobin (Hb) 14.6 g/dL (12.0-16.0); Potassium - ABG Lab 3.23 mmol/L (3.70-5.30); pH, Arterial 7.464 (7.35-7.45)
[2022-11-25 23:36] LABS: ALV-art Gradient 179.875 mmHg (0-20); Puncture Site RRA
[2022-11-25] MEDS ORDERED: Furosemide 40 MG/4 ML VIAL SLOW IVP SCH (23:45)
[2022-11-26] MEDS: HYDROcodone/Acetaminophen 10/325 mg Tablet PO PRN ×3 (05:08→20:22)
[2022-11-26] MEDS: LevoFLOXacin 500 MG TAB PO SCH (05:09)
[2022-11-26] MEDS ORDERED: Potassium Chloride 20 MEQ TAB PO SCH (08:00)
[2022-11-26] MEDS: Aspirin 81 mg Enteric Coated Tablet PO SCH (08:42)
[2022-11-26] MEDS: Losartan 25 MG TAB PO SCH (08:42)
[2022-11-26] MEDS: Apixaban 5 MG TAB PO SCH ×2 (08:43→20:22)
[2022-11-26] MEDS: Furosemide 20 MG/2 ML VIAL SLOW IVP SCH (08:43)
[2022-11-26] MEDS: Senokot S 8.6-50 MG TAB PO SCH ×2 (08:43→20:22)
[2022-11-26] MEDS: rOPINIRole HCl 0.5 MG TAB PO SCH (08:43)
[2022-11-26] MEDS: Polyethylene Glycol 3350 17 GM Packet PO SCH (09:09)
[2022-11-26] MEDS: rOPINIRole HCl 1 MG TAB PO SCH (20:22)
[2022-11-26] MEDS: Atorvastatin Calcium 10 MG TAB PO SCH (20:23)
[2022-11-26] MEDS: Escitalopram Oxalate 10 mg Tablet PO SCH (20:23)
[2022-11-26] MEDS: Amlodipine 10 MG TAB PO SCH (20:23)
[2022-11-26] MEDS: ALPRAZolam 0.5 MG TAB PO SCH (20:23)
[2022-11-26] MEDS: Zolpidem Tartrate 5 MG TAB PO SCH (20:25)
[2022-11-26] MEDS: Ascorbic Acid 500 mg Chewable Tablet PO SCH (20:25)
[2022-11-26] MEDS: Magnesium Oxide 250 MG TAB PO SCH (20:38)
[2022-11-27] MEDS: HYDROcodone/Acetaminophen 10/325 mg Tablet PO PRN ×4 (04:05→20:33)
[2022-11-27] MEDS: LevoFLOXacin 500 MG TAB PO SCH (06:32)
[2022-11-27] MEDS: rOPINIRole HCl 0.5 MG TAB PO SCH (09:23)
[2022-11-27] MEDS: Senokot S 8.6-50 MG TAB PO SCH ×2 (09:23→20:33)
[2022-11-27] MEDS: Apixaban 5 MG TAB PO SCH ×2 (09:24→20:34)
[2022-11-27] MEDS: Aspirin 81 mg Enteric Coated Tablet PO SCH (09:24)
[2022-11-27] MEDS: Polyethylene Glycol 3350 17 GM Packet PO SCH (09:24)
[2022-11-27] MEDS: Losartan 25 MG TAB PO SCH (12:35)
[2022-11-27] MEDS: Amlodipine 10 MG TAB PO SCH (20:33)
[2022-11-27] MEDS: Magnesium Oxide 250 MG TAB PO SCH (20:33)
[2022-11-27] MEDS: rOPINIRole HCl 1 MG TAB PO SCH (20:34)
[2022-11-27] MEDS: Atorvastatin Calcium 10 MG TAB PO SCH (20:34)
[2022-11-27] MEDS: Zolpidem Tartrate 5 MG TAB PO SCH (20:34)
[2022-11-27] MEDS: Ascorbic Acid 500 mg Chewable Tablet PO SCH (20:34)
[2022-11-27] MEDS: ALPRAZolam 0.5 MG TAB PO SCH (20:34)
[2022-11-27] MEDS: Escitalopram Oxalate 10 mg Tablet PO SCH (20:34)
[2022-11-28] MEDS: LevoFLOXacin 500 MG TAB PO SCH (06:06)
[2022-11-28] MEDS: HYDROcodone/Acetaminophen 10/325 mg Tablet PO PRN ×3 (06:07→20:56)
[2022-11-28] MEDS: rOPINIRole HCl 0.5 MG TAB PO SCH (08:55)
[2022-11-28] MEDS: Senokot S 8.6-50 MG TAB PO SCH ×2 (08:56→20:56)
[2022-11-28] MEDS: Apixaban 5 MG TAB PO SCH (08:56)
[2022-11-28] MEDS: Losartan 25 MG TAB PO SCH (08:56)
[2022-11-28] MEDS: Polyethylene Glycol 3350 17 GM Packet PO SCH (08:56)
[2022-11-28] MEDS: Aspirin 81 mg Enteric Coated Tablet PO SCH (08:56)
[2022-11-28] MEDS: Magnesium Oxide 250 MG TAB PO SCH (20:55)
[2022-11-28] MEDS: Amlodipine 10 MG TAB PO SCH (20:55)
[2022-11-28] MEDS: ALPRAZolam 0.5 MG TAB PO SCH (20:56)
[2022-11-28] MEDS: Zolpidem Tartrate 5 MG TAB PO SCH (20:56)
[2022-11-28] MEDS: Atorvastatin Calcium 10 MG TAB PO SCH (20:56)
[2022-11-28] MEDS: rOPINIRole HCl 1 MG TAB PO SCH (20:56)
[2022-11-28] MEDS: Escitalopram Oxalate 10 mg Tablet PO SCH (20:58)
[2022-11-28] MEDS: Ascorbic Acid 500 mg Chewable Tablet PO SCH (21:01)
[2022-11-29 04:00] LABS: CEA, Serum 767.11 ng/mL (< or = 5.0)
[2022-11-29 04:27] LABS: HBCM Index 0.07 S/CO (0-0.79); HBSAg Index 0.28 S/CO (0-0.99); Hep A IgM AB Non-Reactive S/CO (NonReactive); Hep A IgM S/CO 0.15 S/CO (0-0.79); Hep B Surf Ag Non-Reactive S/CO (NonReactive); Hep C IgG Ab Non-Reactive S/CO (NonReactive); Hep C Index 0.09 S/CO (0-0.79); Hepatitis B Core IgM Abs Non-Reactive S/CO (NonReactive)
[2022-11-29] MEDS: LevoFLOXacin 500 MG TAB PO SCH (05:36)
[2022-11-29] MEDS: HYDROcodone/Acetaminophen 10/325 mg Tablet PO PRN ×2 (05:37→09:08)
[2022-11-29] MEDS: rOPINIRole HCl 0.5 MG TAB PO SCH (09:08)
[2022-11-29] MEDS: Senokot S 8.6-50 MG TAB PO SCH ×2 (09:08→20:15)
[2022-11-29] MEDS: Aspirin 81 mg Enteric Coated Tablet PO SCH (09:09)
[2022-11-29] MEDS: Furosemide 20 MG/2 ML VIAL SLOW IVP SCH (09:09)
[2022-11-29] MEDS: Polyethylene Glycol 3350 17 GM Packet PO SCH (09:09)
[2022-11-29] MEDS: Losartan 25 MG TAB PO SCH (09:09)
[2022-11-29] MEDS: Acetaminophen 325 MG TAB PO PRN (14:08)
[2022-11-29 19:35] LABS: Actual Bicarbonate (HCO3v) 26.1 mEq/L (22-28); Base Excess 2.3 mEq/L (-2.0 to +3.0); Chloride (VBG) 94 mmol/L (98-106); Hematocrit-VBG 41 % (36.0-47.0); Hemoglobin (Hb) 14.1 g/dL (11.7-16.0); Potassium (VBG) 3.63 mmol/L (3.70-5.30); pH (venous) 7.453 (7.32-7.43)
[2022-11-29] MEDS: Atorvastatin Calcium 10 MG TAB PO SCH (20:15)
[2022-11-29] MEDS: ALPRAZolam 0.5 MG TAB PO SCH (20:15)
[2022-11-29] MEDS: Zolpidem Tartrate 5 MG TAB PO SCH (20:15)
[2022-11-29] MEDS: Ascorbic Acid 500 mg Chewable Tablet PO SCH ×2 (20:15→20:17)
[2022-11-29] MEDS: Apixaban 5 MG TAB PO SCH (20:15)
[2022-11-29] MEDS: Magnesium Oxide 250 MG TAB PO SCH (20:15)
[2022-11-29] MEDS: Escitalopram Oxalate 10 mg Tablet PO SCH (20:15)
[2022-11-29] MEDS: rOPINIRole HCl 1 MG TAB PO SCH (20:15)
[2022-11-29] MEDS: Amlodipine 10 MG TAB PO SCH (20:15)
[2022-11-30] MEDS: HYDROcodone/Acetaminophen 10/325 mg Tablet PO PRN ×3 (09:46→20:06)
[2022-11-30] MEDS: Apixaban 5 MG TAB PO SCH ×2 (09:46→20:07)
[2022-11-30] MEDS: Losartan 25 MG TAB PO SCH (09:47)
[2022-11-30] MEDS: Furosemide 20 MG/2 ML VIAL SLOW IVP SCH (09:48)
[2022-11-30] MEDS: Aspirin 81 mg Enteric Coated Tablet PO SCH (09:48)
[2022-11-30] MEDS: Polyethylene Glycol 3350 17 GM Packet PO SCH (09:48)
[2022-11-30] MEDS: Senokot S 8.6-50 MG TAB PO SCH ×2 (09:48→20:07)
[2022-11-30] MEDS: rOPINIRole HCl 0.5 MG TAB PO SCH (09:48)
[2022-11-30 13:57] LABS: O2 Tension (PaO2), arterial 52.7 mmHg (> 80.0)
[2022-11-30] MEDS: ALPRAZolam 0.5 MG TAB PO SCH (20:06)
[2022-11-30] MEDS: Magnesium Oxide 250 MG TAB PO SCH (20:07)
[2022-11-30] MEDS: Ascorbic Acid 500 mg Chewable Tablet PO SCH (20:07)
[2022-11-30] MEDS: Escitalopram Oxalate 10 mg Tablet PO SCH (20:07)
[2022-11-30] MEDS: Atorvastatin Calcium 10 MG TAB PO SCH (20:07)
[2022-11-30] MEDS: Amlodipine 10 MG TAB PO SCH (20:07)
[2022-11-30] MEDS: Zolpidem Tartrate 5 MG TAB PO SCH (20:07)
[2022-11-30] MEDS: rOPINIRole HCl 1 MG TAB PO SCH (20:07)
[2022-12-01] MEDS: Polyethylene Glycol 3350 17 GM Packet PO SCH (08:46)
[2022-12-01] MEDS: Apixaban 5 MG TAB PO SCH ×2 (08:46→20:40)
[2022-12-01] MEDS: Senokot S 8.6-50 MG TAB PO SCH ×2 (08:46→20:40)
[2022-12-01] MEDS: Aspirin 81 mg Enteric Coated Tablet PO SCH (08:46)
[2022-12-01] MEDS: Furosemide 20 MG/2 ML VIAL SLOW IVP SCH (08:47)
[2022-12-01] MEDS: Losartan 25 MG TAB PO SCH (08:47)
[2022-12-01] MEDS: rOPINIRole HCl 0.5 MG TAB PO SCH ×2 (09:48→11:02)
[2022-12-01] MEDS: Escitalopram Oxalate 10 mg Tablet PO SCH (20:40)
[2022-12-01] MEDS: rOPINIRole HCl 1 MG TAB PO SCH (20:40)
[2022-12-01] MEDS: Amlodipine 10 MG TAB PO SCH (20:40)
[2022-12-01] MEDS: Magnesium Oxide 250 MG TAB PO SCH (20:40)
[2022-12-01] MEDS: Zolpidem Tartrate 5 MG TAB PO SCH (20:41)
[2022-12-01] MEDS: Ascorbic Acid 500 mg Chewable Tablet PO SCH (20:41)
[2022-12-01] MEDS: Atorvastatin Calcium 10 MG TAB PO SCH (20:41)
[2022-12-01] MEDS: ALPRAZolam 0.5 MG TAB PO SCH (20:41)
[2022-12-01] MEDS: HYDROcodone/Acetaminophen 10/325 mg Tablet PO PRN (20:45)
[2022-12-02 04:12] LABS: #Basophils 0.2 thou/uL (0.0-0.2); #Eosinphils 0.2 thou/uL (0.0-0.7); #Monocytes 2.6 thou/uL (0.11-0.59); #Neutrophils 13.3 thou/uL (1.40-6.50); %Basophils 1.2 % (0.0-1.0); %Eosinophils 0.8 % (0.0-10.0); %Lymphocytes 12.3 % (21.0-51.0); %Monocytes 13.6 % (0.0-10.0); Hemoglobin 13.9 g/dL (12.0-16.0); Mean Corpuscular HGB CONC 32.3 g/dL (32.0-36.0); Mean Corpuscular Volume 92.9 fl (78.0-98.0); Mean Platelet Volume 11.4 fL (7.4-10.4); Platelet Count 263 10x3/uL (130-400); RBC Distribution Width 15.3 % (11.5-14.5); Red Blood Cell (RBC) Count 4.63 mill/uL (4.20-5.40); White Blood Cell (WBC) Count 19.3 10x3/uL (4.8-10.8)
[2022-12-02 04:32] LABS: Anion Gap 17 mmol/L (10-20); BUN (Urea Nitrogen) 37 mg/dL (9.8-20.1); Calc. Creatinine Clearance 100 mL/min (70-130); Calcium 11.7 mg/dL (7.8-10.44); Carbon Dioxide 27 mmol/L (23-31); Chloride 97 mmol/L (98-107); Estimated GFR 59; Glucose 91 mg/dL (80-115); Potassium 3.7 mmol/L (3.5-5.1); Sodium 137 mmol/L (136-145)
[2022-12-02] MEDS: Apixaban 5 MG TAB PO SCH ×2 (08:56→20:03)
[2022-12-02] MEDS: Polyethylene Glycol 3350 17 GM Packet PO SCH (08:56)
[2022-12-02] MEDS: Senokot S 8.6-50 MG TAB PO SCH ×2 (08:56→20:03)
[2022-12-02] MEDS: Aspirin 81 mg Enteric Coated Tablet PO SCH (08:56)
[2022-12-02] MEDS: Losartan 25 MG TAB PO SCH (09:32)
[2022-12-02] MEDS: HYDROcodone/Acetaminophen 10/325 mg Tablet PO PRN ×2 (11:27→20:18)
[2022-12-02] MEDS: rOPINIRole HCl 0.5 MG TAB PO SCH (11:29)
[2022-12-02] MEDS: Escitalopram Oxalate 10 mg Tablet PO SCH (20:03)
[2022-12-02] MEDS: ALPRAZolam 0.5 MG TAB PO SCH (20:03)
[2022-12-02] MEDS: Amlodipine 10 MG TAB PO SCH (20:03)
[2022-12-02] MEDS: rOPINIRole HCl 1 MG TAB PO SCH (20:03)
[2022-12-02] MEDS: Magnesium Oxide 250 MG TAB PO SCH (20:03)
[2022-12-02] MEDS: Ascorbic Acid 500 mg Chewable Tablet PO SCH (20:04)
[2022-12-02] MEDS: Zolpidem Tartrate 5 MG TAB PO SCH (20:04)
[2022-12-02] MEDS: Atorvastatin Calcium 10 MG TAB PO SCH (20:04)
[2022-12-03 05:27] LABS: #Basophils 0.2 thou/uL (0.0-0.2); #Eosinphils 0.2 thou/uL (0.0-0.7); #Monocytes 2.8 thou/uL (0.11-0.59); #Neutrophils 14.3 thou/uL (1.40-6.50); %Basophils 1.2 % (0.0-1.0); %Eosinophils 0.8 % (0.0-10.0); %Monocytes 13.7 % (0.0-10.0); %Neutrophils 70.1 % (42.0-75.0); Hemoglobin 13.7 g/dL (12.0-16.0); Mean Corpuscular HGB CONC 32.2 g/dL (32.0-36.0); Mean Corpuscular Hemoglobin 29.7 pg (27.0-31.0); Mean Corpuscular Volume 92.2 fl (78.0-98.0); Mean Platelet Volume 11.6 fL (7.4-10.4); Platelet Count 261 10x3/uL (130-400); RBC Distribution Width 15.2 % (11.5-14.5); Red Blood Cell (RBC) Count 4.62 mill/uL (4.20-5.40); White Blood Cell (WBC) Count 20.4 10x3/uL (4.8-10.8)
[2022-12-03 05:52] LABS: Anion Gap 14 mmol/L (10-20); BUN (Urea Nitrogen) 36 mg/dL (9.8-20.1); Calc. Creatinine Clearance 105 mL/min (70-130); Calcium 12.3 mg/dL (7.8-10.44); Carbon Dioxide 30 mmol/L (23-31); Chloride 98 mmol/L (98-107); Estimated GFR 63; Glucose 87 mg/dL (80-115); Potassium 3.8 mmol/L (3.5-5.1); Sodium 138 mmol/L (136-145)
[2022-12-03] MEDS: Polyethylene Glycol 3350 17 GM Packet PO SCH (09:41)
[2022-12-03] MEDS: Aspirin 81 mg Enteric Coated Tablet PO SCH (09:41)
[2022-12-03] MEDS: Senokot S 8.6-50 MG TAB PO SCH ×2 (09:41→20:34)
[2022-12-03] MEDS: rOPINIRole HCl 0.5 MG TAB PO SCH (10:10)
[2022-12-03] MEDS: Apixaban 5 MG TAB PO SCH ×2 (10:11→20:34)
[2022-12-03] MEDS: Losartan 25 MG TAB PO SCH (10:12)
[2022-12-03] MEDS: HYDROcodone/Acetaminophen 10/325 mg Tablet PO PRN ×2 (12:47→20:34)
[2022-12-03] MEDS ORDERED: Zoledronic Acid 4 MG in Sodium Chloride 0.9% 100 ML IVPB SCH (13:00)
[2022-12-03] MEDS: Escitalopram Oxalate 10 mg Tablet PO SCH (20:34)
[2022-12-03] MEDS: Zolpidem Tartrate 5 MG TAB PO SCH (20:34)
[2022-12-03] MEDS: Atorvastatin Calcium 10 MG TAB PO SCH (20:34)
[2022-12-03] MEDS: rOPINIRole HCl 1 MG TAB PO SCH (20:34)
[2022-12-03] MEDS: Amlodipine 10 MG TAB PO SCH (20:34)
[2022-12-03] MEDS: ALPRAZolam 0.5 MG TAB PO SCH (20:34)
[2022-12-03] MEDS: Ascorbic Acid 500 mg Chewable Tablet PO SCH (20:35)
[2022-12-03] MEDS: Magnesium Oxide 250 MG TAB PO SCH (20:35)
[2022-12-04 03:01] LABS: #Basophils 0.2 thou/uL (0.0-0.2); #Eosinphils 0.1 thou/uL (0.0-0.7); #Monocytes 2.5 thou/uL (0.11-0.59); #Neutrophils 15.1 thou/uL (1.40-6.50); %Basophils 1.1 % (0.0-1.0); %Eosinophils 0.6 % (0.0-10.0); %Lymphocytes 11.2 % (21.0-51.0); %Monocytes 12.1 % (0.0-10.0); %Neutrophils 72.3 % (42.0-75.0); Hemoglobin 14.2 g/dL (12.0-16.0); Mean Corpuscular HGB CONC 31.3 g/dL (32.0-36.0); Mean Corpuscular Hemoglobin 29.4 pg (27.0-31.0); Mean Platelet Volume 11.8 fL (7.4-10.4); Platelet Count 268 10x3/uL (130-400); RBC Distribution Width 15.5 % (11.5-14.5); Red Blood Cell (RBC) Count 4.83 mill/uL (4.20-5.40); White Blood Cell (WBC) Count 20.8 10x3/uL (4.8-10.8)
[2022-12-04 04:26] LABS: Anion Gap 17 mmol/L (10-20); BUN (Urea Nitrogen) 34 mg/dL (9.8-20.1); Calc. Creatinine Clearance 123 mL/min (70-130); Calcium 12.8 mg/dL (7.8-10.44); Carbon Dioxide 30 mmol/L (23-31); Chloride 98 mmol/L (98-107); Estimated GFR 75; Glucose 76 mg/dL (80-115); Potassium 3.6 mmol/L (3.5-5.1); Sodium 141 mmol/L (136-145)
[2022-12-04] MEDS: HYDROcodone/Acetaminophen 10/325 mg Tablet PO PRN ×2 (09:20→19:22)
[2022-12-04] MEDS: Apixaban 5 MG TAB PO SCH ×2 (09:21→20:54)
[2022-12-04] MEDS: Aspirin 81 mg Enteric Coated Tablet PO SCH (09:21)
[2022-12-04] MEDS: Senokot S 8.6-50 MG TAB PO SCH ×2 (09:21→20:55)
[2022-12-04] MEDS: Polyethylene Glycol 3350 17 GM Packet PO SCH (09:21)
[2022-12-04] MEDS: Losartan 25 MG TAB PO SCH (09:22)
[2022-12-04] MEDS: Nystatin 500,000 UNITS/5 ML UDCUP SSW SCH ×3 (12:11→20:51)
[2022-12-04] MEDS: rOPINIRole HCl 0.5 MG TAB PO SCH (12:11)
[2022-12-04] MEDS: Magnesium Oxide 250 MG TAB PO SCH (20:51)
[2022-12-04] MEDS: ALPRAZolam 0.5 MG TAB PO SCH (20:52)
[2022-12-04] MEDS: Atorvastatin Calcium 10 MG TAB PO SCH (20:52)
[2022-12-04] MEDS: Amlodipine 10 MG TAB PO SCH (20:54)
[2022-12-04] MEDS: Ascorbic Acid 500 mg Chewable Tablet PO SCH (20:54)
[2022-12-04] MEDS: Zolpidem Tartrate 5 MG TAB PO SCH (20:55)
[2022-12-04] MEDS: Escitalopram Oxalate 10 mg Tablet PO SCH (20:55)
[2022-12-04] MEDS: rOPINIRole HCl 1 MG TAB PO SCH (20:55)
[2022-12-05] MEDS: HYDROcodone/Acetaminophen 10/325 mg Tablet PO PRN ×3 (00:04→10:41)
[2022-12-05 03:07] LABS: #Basophils 0.2 thou/uL (0.0-0.2); #Eosinphils 0.1 thou/uL (0.0-0.7); #Monocytes 2.4 thou/uL (0.11-0.59); #Neutrophils 15.3 thou/uL (1.40-6.50); %Eosinophils 0.4 % (0.0-10.0); %Lymphocytes 8.9 % (21.0-51.0); %Monocytes 11.7 % (0.0-10.0); %Neutrophils 75.4 % (42.0-75.0); Mean Corpuscular HGB CONC 32.3 g/dL (32.0-36.0); Mean Corpuscular Hemoglobin 29.9 pg (27.0-31.0); Mean Corpuscular Volume 92.5 fl (78.0-98.0); Mean Platelet Volume 11.7 fL (7.4-10.4); Platelet Count 242 10x3/uL (130-400); RBC Distribution Width 15.7 % (11.5-14.5); Red Blood Cell (RBC) Count 4.69 mill/uL (4.20-5.40); White Blood Cell (WBC) Count 20.3 10x3/uL (4.8-10.8)
[2022-12-05 03:36] LABS: Anion Gap 13 mmol/L (10-20); BUN (Urea Nitrogen) 37 mg/dL (9.8-20.1); Calc. Creatinine Clearance 120 mL/min (70-130); Carbon Dioxide 32 mmol/L (23-31); Chloride 100 mmol/L (98-107); Estimated GFR 73; Glucose 105 mg/dL (80-115); Potassium 3.3 mmol/L (3.5-5.1); Sodium 142 mmol/L (136-145)
[2022-12-05] MEDS ORDERED: Potassium Chloride 20 MEQ TAB PO SCH (04:30)
[2022-12-05] MEDS: Polyethylene Glycol 3350 17 GM Packet PO SCH (10:40)
[2022-12-05] MEDS: Losartan 25 MG TAB PO SCH (10:40)
[2022-12-05] MEDS: rOPINIRole HCl 0.5 MG TAB PO SCH (10:40)
[2022-12-05] MEDS: Senokot S 8.6-50 MG TAB PO SCH ×2 (10:40→20:55)
[2022-12-05] MEDS: Apixaban 5 MG TAB PO SCH ×2 (10:40→10:54)
[2022-12-05] MEDS: Aspirin 81 mg Enteric Coated Tablet PO SCH (10:41)
[2022-12-05] MEDS: Nystatin 500,000 UNITS/5 ML UDCUP SSW SCH ×4 (10:43→20:55)
[2022-12-05] MEDS: Bumetanide 1 MG/4 ML VIAL IVP SCH (14:06)
[2022-12-05] MEDS: Phenazopyridine HCl 100 MG TAB PO SCH ×2 (14:07→21:08)
[2022-12-05] MEDS: Morphine 4 MG/ML VIAL SLOW IVP PRN ×2 (15:38→20:59)
[2022-12-05] MEDS: ALPRAZolam 0.5 MG TAB PO SCH (20:55)
[2022-12-05] MEDS: Zolpidem Tartrate 5 MG TAB PO SCH (20:55)
[2022-12-05] MEDS: Amlodipine 10 MG TAB PO SCH (20:56)
[2022-12-05] MEDS: Escitalopram Oxalate 10 mg Tablet PO SCH (20:56)
[2022-12-05] MEDS: rOPINIRole HCl 1 MG TAB PO SCH (20:56)
[2022-12-05] MEDS: Atorvastatin Calcium 10 MG TAB PO SCH (20:56)
[2022-12-05] MEDS: Ascorbic Acid 500 mg Chewable Tablet PO SCH (20:57)
[2022-12-05] MEDS: Magnesium Oxide 250 MG TAB PO SCH (20:57)
[2022-12-06] MEDS: Morphine 4 MG/ML VIAL SLOW IVP PRN ×2 (02:20→20:48)
[2022-12-06 05:16] LABS: #Basophils 0.2 thou/uL (0.0-0.2); #Eosinphils 0.2 thou/uL (0.0-0.7); #Monocytes 2.6 thou/uL (0.11-0.59); #Neutrophils 14.6 thou/uL (1.40-6.50); %Basophils 1.1 % (0.0-1.0); %Eosinophils 0.8 % (0.0-10.0); %Lymphocytes 10.4 % (21.0-51.0); %Monocytes 12.8 % (0.0-10.0); %Neutrophils 72.7 % (42.0-75.0); Hemoglobin 13.8 g/dL (12.0-16.0); Mean Corpuscular HGB CONC 31.4 g/dL (32.0-36.0); Mean Corpuscular Hemoglobin 29.9 pg (27.0-31.0); Mean Corpuscular Volume 95.4 fl (78.0-98.0); Mean Platelet Volume 11.4 fL (7.4-10.4); Platelet Count 233 10x3/uL (130-400); RBC Distribution Width 16.1 % (11.5-14.5); Red Blood Cell (RBC) Count 4.61 mill/uL (4.20-5.40); White Blood Cell (WBC) Count 20.1 10x3/uL (4.8-10.8)
[2022-12-06] MEDS: Bumetanide 1 MG/4 ML VIAL IVP SCH ×2 (05:36→15:31)
[2022-12-06 05:38] LABS: Anion Gap 14 mmol/L (10-20); BUN (Urea Nitrogen) 48 mg/dL (9.8-20.1); Calc. Creatinine Clearance 91 mL/min (70-130); Calcium 9.7 mg/dL (7.8-10.44); Carbon Dioxide 33 mmol/L (23-31); Chloride 102 mmol/L (98-107); Estimated GFR 54; Glucose 90 mg/dL (80-115); Potassium 3.9 mmol/L (3.5-5.1); Sodium 145 mmol/L (136-145)
[2022-12-06] MEDS: Nystatin 500,000 UNITS/5 ML UDCUP SSW SCH ×4 (08:40→20:49)
[2022-12-06] MEDS: Senokot S 8.6-50 MG TAB PO SCH ×2 (08:40→20:51)
[2022-12-06] MEDS: Phenazopyridine HCl 100 MG TAB PO SCH ×3 (08:40→17:39)
[2022-12-06] MEDS: Losartan 25 MG TAB PO SCH (08:40)
[2022-12-06] MEDS: Aspirin 81 mg Enteric Coated Tablet PO SCH (08:40)
[2022-12-06] MEDS: Polyethylene Glycol 3350 17 GM Packet PO SCH (08:40)
[2022-12-06] MEDS ORDERED: Lidocaine 1% (PF) 30 ML VIAL ONE (09:20)
[2022-12-06] MEDS ORDERED: Sevoflurane 250 ML INH ANEST BOTTLE ONE (09:48)
[2022-12-06] MEDS ORDERED: fentaNYL 50 mcg/mL 1 mL Vial ONE (09:48)
[2022-12-06] MEDS ORDERED: PROPOFOL 200 MG/20 ML VIAL ONE (10:08)
[2022-12-06] MEDS ORDERED: Ondansetron PF 4 MG/2 ML Vial ONE (10:08)
[2022-12-06] MEDS ORDERED: PHENYLEPHRINE-NS 100 MCG/ML 10 ML SYRINGE ONE (10:08)
[2022-12-06] MEDS: rOPINIRole HCl 0.5 MG TAB PO SCH (14:55)
[2022-12-06] MEDS: Escitalopram Oxalate 10 mg Tablet PO SCH (20:50)
[2022-12-06] MEDS: Zolpidem Tartrate 5 MG TAB PO SCH (20:50)
[2022-12-06] MEDS: Atorvastatin Calcium 10 MG TAB PO SCH (20:50)
[2022-12-06] MEDS: Ascorbic Acid 500 mg Chewable Tablet PO SCH (20:51)
[2022-12-06] MEDS: Amlodipine 10 MG TAB PO SCH (20:51)
[2022-12-06] MEDS: ALPRAZolam 0.5 MG TAB PO SCH (20:51)
[2022-12-06] MEDS: Apixaban 5 MG TAB PO SCH (20:51)
[2022-12-06] MEDS: rOPINIRole HCl 1 MG TAB PO SCH (20:51)
[2022-12-06] MEDS: Magnesium Oxide 250 MG TAB PO SCH (20:52)
[2022-12-07] MEDS: Bumetanide 1 MG/4 ML VIAL IVP SCH ×2 (06:43→14:05)
[2022-12-07] MEDS: Phenazopyridine HCl 100 MG TAB PO SCH ×3 (09:18→18:09)
[2022-12-07] MEDS: Apixaban 5 MG TAB PO SCH ×2 (09:19→20:34)
[2022-12-07] MEDS: Aspirin 81 mg Enteric Coated Tablet PO SCH (09:19)
[2022-12-07] MEDS: Senokot S 8.6-50 MG TAB PO SCH ×2 (09:19→20:34)
[2022-12-07] MEDS: Losartan 25 MG TAB PO SCH (09:19)
[2022-12-07] MEDS: Nystatin 500,000 UNITS/5 ML UDCUP SSW SCH ×4 (09:20→20:35)
[2022-12-07] MEDS: Polyethylene Glycol 3350 17 GM Packet PO SCH (09:20)
[2022-12-07] MEDS: rOPINIRole HCl 0.5 MG TAB PO SCH (10:14)
[2022-12-07] MEDS: Morphine 4 MG/ML VIAL SLOW IVP PRN ×2 (10:14→20:34)
[2022-12-07] MEDS: Acetaminophen 325 MG TAB PO PRN (14:05)
[2022-12-07] MEDS: Atorvastatin Calcium 10 MG TAB PO SCH (20:34)
[2022-12-07] MEDS: Zolpidem Tartrate 5 MG TAB PO SCH (20:34)
[2022-12-07] MEDS: ALPRAZolam 0.5 MG TAB PO SCH (20:34)
[2022-12-07] MEDS: Escitalopram Oxalate 10 mg Tablet PO SCH (20:34)
[2022-12-07] MEDS: rOPINIRole HCl 1 MG TAB PO SCH (20:34)
[2022-12-07] MEDS: Ascorbic Acid 500 mg Chewable Tablet PO SCH (20:53)
[2022-12-07] MEDS: Magnesium Oxide 250 MG TAB PO SCH (20:53)
[2022-12-07] MEDS: Amlodipine 10 MG TAB PO SCH (21:20)
[2022-12-07 23:21] VITALS: BP 90/49
[2022-12-08 01:37] VITALS: TEMP 97.5
[2022-12-08] MEDS: Bumetanide 1 MG/4 ML VIAL IVP SCH ×2 (06:18→15:03)
[2022-12-08] MEDS: Aspirin 81 mg Enteric Coated Tablet PO SCH (07:51)
[2022-12-08] MEDS: Apixaban 5 MG TAB PO SCH (07:51)
[2022-12-08] MEDS: Senokot S 8.6-50 MG TAB PO SCH (07:51)
[2022-12-08] MEDS: Polyethylene Glycol 3350 17 GM Packet PO SCH (07:51)
[2022-12-08] MEDS: Phenazopyridine HCl 100 MG TAB PO SCH ×2 (07:52→13:10)
[2022-12-08] MEDS: Nystatin 500,000 UNITS/5 ML UDCUP SSW SCH ×2 (07:52→13:10)
[2022-12-08] MEDS: HYDROcodone/Acetaminophen 10/325 mg Tablet PO PRN ×2 (07:52→12:58)
[2022-12-08] MEDS: Losartan 25 MG TAB PO SCH (07:53)
[2022-12-08] MEDS: Morphine 4 MG/ML VIAL SLOW IVP PRN ×2 (12:13→16:22)
[2022-12-08] MEDS: rOPINIRole HCl 0.5 MG TAB PO SCH (12:16)
== END 2022-12-08 16:30 | disposition hospice, inpatient (51) | DRG 180 ==
LOC: ERS 21:19 → IMCU/EMU 22:36 → SURG A 11-22 19:36 → IMCU/EMU 11-26 01:06
PROVIDERS: ADMIT Internal Medicine; ATTEND Internal Medicine
PROC: 0W9B3ZZ Drainage of Left Pleural Cavity, Percutaneous Approach (ICD-10-PCS; principal; 2022-11-17)
PROC: 3E03329 Introduction of Other Anti-infective into Peripheral Vein, Percutaneous Approach (ICD-10-PCS; 2022-11-17)
PROC: 5A09457 Assistance with Respiratory Ventilation, 24-96 Consecutive Hours, Continuous Positive Airway Pressure (ICD-10-PCS; 2022-11-17)
PROC: 4A133R1 Monitoring of Arterial Saturation, Peripheral, Percutaneous Approach (ICD-10-PCS; 2022-11-25)
PROC: 0W9B30Z Drainage of Left Pleural Cavity with Drainage Device, Percutaneous Approach (ICD-10-PCS; 2022-12-06)
DX: C78.2 Secondary malignant neoplasm of pleura (principal); A41.9 Sepsis, unspecified organism; I26.99 Other pulmonary embolism without acute cor pulmonale; J18.9 Pneumonia, unspecified organism; J96.01 Acute respiratory failure with hypoxia; J86.9 Pyothorax without fistula; Z68.41 Body mass index [BMI] 40.0-44.9, adult; J91.0 Malignant pleural effusion; Z51.5 Encounter for palliative care; E87.6 Hypokalemia; R10.9 Unspecified abdominal pain; C80.1 Malignant (primary) neoplasm, unspecified; F39 Unspecified mood [affective] disorder; K59.00 Constipation, unspecified; Z66 Do not resuscitate; I10 Essential (primary) hypertension; E78.5 Hyperlipidemia, unspecified; G89.29 Other chronic pain; G25.81 Restless legs syndrome; G47.33 Obstructive sleep apnea (adult) (pediatric); R91.1 Solitary pulmonary nodule; Z20.822 Contact with and (suspected) exposure to COVID-19; E66.01 Morbid (severe) obesity due to excess calories; Z96.652 Presence of left artificial knee joint; Q85.00 Neurofibromatosis, unspecified; Z88.8 Allergy status to other drugs, medicaments and biological substances; Z98.890 Other specified postprocedural states; Z82.49 Family history of ischemic heart disease and other diseases of the circulatory system; Z80.9 Family history of malignant neoplasm, unspecified; Z79.82 Long term (current) use of aspirin; E16.2 Hypoglycemia, unspecified; R53.81 Other malaise
CPT/HCPCS: 36415; 36416; 36600; 71045; 71250; 71275; 74177; 80048; 80053; 80074; 82150; 82378; 82553; 82805; 82945; 83605; 83615; 83735; 83880; 84100; 84157; 84484; 85025; 85060; 86301; 86304; 87070; 87116; 87205; 87206; 87449; 87899; 88112; 88305; 88341; 88342; 89051; 93306; 93970; 94660; 96374; 96375; C1729; J1650; J1885; J1940; J1956; J2001; J2270; J2272; J2405; J2704; J3010; J3489; J3490; Q9967

== ENCOUNTER 2022-12-08 16:34 | Inpatient (IN) | payer OTHER ==
[2022-12-08] MEDS ORDERED: GLYCOPYRROLATE/PF 0.2 MG/ML VIAL SLOW IVP PRN (16:52)
[2022-12-08] MEDS ORDERED: Acetaminophen 650 MG Suppository PR PRN (17:00)
[2022-12-08] MEDS ORDERED: Haloperidol Lactate 5 MG/ML VIAL SLOW IVP PRN (17:00)
[2022-12-08] MEDS ORDERED: Scopolamine 1.5 mg/72 hour Patch TOP PRN (17:00)
[2022-12-08] MEDS ORDERED: Ondansetron PF 4 MG/2 ML Vial IVP PRN (17:00)
[2022-12-08] MEDS: Nystatin 500,000 UNITS/5 ML UDCUP PO SCH ×2 (17:44→21:04)
[2022-12-08] MEDS: Morphine 2 MG/ML VIAL SLOW IVP PRN ×2 (18:15→23:20)
[2022-12-08] MEDS: Lorazepam 2 MG/ML VIAL SLOW IVP PRN ×2 (18:41→23:23)
[2022-12-08] MEDS ORDERED: Zolpidem Tartrate 5 MG TAB PO SCH (21:00)
[2022-12-08] MEDS ORDERED: Escitalopram Oxalate 10 mg Tablet PO SCH (21:00)
[2022-12-08] MEDS ORDERED: ALPRAZolam 0.5 MG TAB PO SCH (21:00)
[2022-12-08] MEDS ORDERED: rOPINIRole HCl 1 MG TAB PO SCH (21:00)
[2022-12-08] MEDS: Apixaban 5 MG TAB PO SCH (21:04)
[2022-12-08] MEDS: Senokot S 8.6-50 MG TAB PO SCH (22:49)
[2022-12-09] MEDS: Morphine 2 MG/ML VIAL SLOW IVP PRN ×7 (02:11→12:34)
[2022-12-09] MEDS: Lorazepam 2 MG/ML VIAL SLOW IVP PRN ×4 (06:07→18:23)
[2022-12-09] MEDS: Senokot S 8.6-50 MG TAB PO SCH (09:43)
[2022-12-09] MEDS: Apixaban 5 MG TAB PO SCH (09:43)
[2022-12-09] MEDS: Nystatin 500,000 UNITS/5 ML UDCUP PO SCH (09:43)
[2022-12-09] MEDS ORDERED: Bisacodyl 10 MG SUPP PR PRN (10:36)
[2022-12-09] MEDS ORDERED: rOPINIRole HCl 0.5 MG TAB PO SCH (11:00)
[2022-12-09] MEDS: Morphine 4 MG/ML VIAL SLOW IVP PRN ×2 (13:17→14:05)
[2022-12-09] MEDS ORDERED: Fentanyl 100 MCG/2 ML VIAL SLOW IVP PRN (14:43)
[2022-12-09] MEDS: fentaNYL 50 mcg/mL 1 mL Vial SLOW IVP PRN ×4 (15:36→22:08)
[2022-12-09 21:26] VITALS: TEMP 98.2
== END 2022-12-09 22:49 | disposition expired | DRG 951 ==
LOC: IMCU/EMU 16:34
PROVIDERS: ADMIT Family Medicine; ATTEND Family Medicine
DX: Z51.5 Encounter for palliative care (principal); G93.41 Metabolic encephalopathy; J96.01 Acute respiratory failure with hypoxia; I26.99 Other pulmonary embolism without acute cor pulmonale; C25.9 Malignant neoplasm of pancreas, unspecified; G89.29 Other chronic pain; G25.81 Restless legs syndrome; G47.33 Obstructive sleep apnea (adult) (pediatric); I95.9 Hypotension, unspecified; Z66 Do not resuscitate; Z88.5 Allergy status to narcotic agent; Q85.00 Neurofibromatosis, unspecified
CPT/HCPCS: J2060; J2270; J2272; J3010